=== PATIENT | female | born 1970 | race Caucasian/White ===

== ENCOUNTER 2017-01-05 22:26 | Emergency (ER) | payer OTHER ==
[~2017-01-05] VITALS: Ht 175.3 cm; Wt 61.9 kg
[~2017-01-05 22:26] MED LIST: 12 HOUR DECONG120 M1 PO; BENADRYL25 MG PO; BUSPAR5 MG PO; Bactrim,Septra DS 80 PO; CATAPRES0.2 MG PO; CLEOCIN300 MG PO; CLONAZEPAM0.5 MG PO; CLONIDINE HCL0.1 MG PO; COLACE100 MG PO; EFFEXOR XR150 MG PO; ENDOCET 5-3251 EACH PO; FIORICET 50-301 EACH PO; FOLVITE1 M1 PO; Feosol PO; HYDRALAZINE HCL50 M1 PO; HYDROCHLOROTHIA25 MG PO; IBUPROFEN800 MG PO; KLONOPIN0.125 MG PO; LABETALOL HCL200 MG PO; LIBRIUM25 MG PO; LISINOPRIL20 MG PO; LOPRESSOR25 MG PO; Maalox, Mylanta PO; NOHOMEMEDS; PERCOCET 5/31 TABLET PO; PRENATAL TABLE1 EAC3 PO; PRINIVIL10 MG PO; PriLOSEC OTC PO; RANITIDINE HCL150 MG PO; ROXICET 5-3251 EACH PO; THERAGRAN1 TABLET PO; THIAMINE HCL100 MG PO; THIAMINE,VITAM100 MG PO; TOPROL XL100 MG PO; TYLOX1 CAPSULE PO; ULTRAM50 MG PO; VISTARIL25 MG PO; XANAX2 MG PO; Xanax PO; ZESTRIL,PRINIVI10 M1 PO; ZOFRAN ODT4 MG PO; celeXA PO
[2017-01-05 23:20] LABS: HEMATOCRIT 41.4 % (36.0-46.0); MCH 28.4 PG (29.0-34.0); MCHC 33.1 G/DL (30.0-36.0); MCV 85.7 FL (83-99); MEAN PLAT.VOLUME 9.7 uM^3 (9.5-12.4); PLATELET COUNT 318 K/uL (156-360); RBC DIS.WIDTH-CV 13.5 % (11.8-14.6); RBC DIS.WIDTH-SD 41.8 % (39-53); RED BLOOD COUNT 4.83 M/uL (3.80-5.20); WHITE BLOOD COUNT 10.3 K/uL (4.1-10.2)
[2017-01-05 23:26] LABS: CHLORIDE 105 mEq/L (99-109); POTASSIUM 3.7 mEq/L (3.7-5.4); SODIUM 140 mEq/L (136-147)
[2017-01-05 23:28] LABS: GLUCOSE 75 mg/dL (70-99)
[2017-01-05 23:29] LABS: ANION GAP 10 MEQ/L (2-14)
[2017-01-05 23:31] LABS: SERUM ETHYL ALCOHOL 158 mg/dL
[2017-01-05 23:32] LABS: GFR ESTIMATE (CALCULATED) > 59 mL/min/
[2017-01-05 23:34] LABS: UREA NITROGEN (BUN) 14 mg/dL (9-23)
[2017-01-05 23:35] LABS: SALICYLATE < 5.0 MG/DL (15-30)
[2017-01-06 02:03] VITALS: BP 133/89
== END 2017-01-06 02:29 | disposition home or self-care (01) ==
LOC: EME 22:26
PROVIDERS: Emergency Medicine
DX: F32.9 Major depressive disorder, single episode, unspecified (principal); F41.9 Anxiety disorder, unspecified; F10.129 Alcohol abuse with intoxication, unspecified; Y90.6 Blood alcohol level of 120-199 mg/100 ml; I10 Essential (primary) hypertension; F17.200 Nicotine dependence, unspecified, uncomplicated
CPT/HCPCS: 80048; 85027; 90839; 99281; 99285; G0480

== ENCOUNTER 2017-07-27 16:15 | Emergency (ER) | payer OTHER ==
[~2017-07-27] VITALS: Ht 154.9 cm; Wt 98.3 kg
[2017-07-27] MEDS ORDERED: THIAMINE HCL100 MG PO (17:38)
[2017-07-27 18:08] VITALS: BP 156/117
== END 2017-07-27 18:09 | disposition home or self-care (01) ==
LOC: EME 16:15
DX: F10.10 Alcohol abuse, uncomplicated (principal); F32.9 Major depressive disorder, single episode, unspecified; I10 Essential (primary) hypertension; F43.10 Post-traumatic stress disorder, unspecified; F17.200 Nicotine dependence, unspecified, uncomplicated
CPT/HCPCS: 99281; 99283; J2060

== ENCOUNTER 2017-08-27 23:09 | Inpatient (IN) | payer OTHER ==
[~2017-08-27] VITALS: Ht 160 cm; Wt 69.1 kg
[2017-08-27 23:40] LABS: CREATININE 1.3 mg/dL (0.6-1.3); POTASSIUM 5.7 mEq/L (3.7-5.4)
[2017-08-28] VITALS (7 sets, daily range): BP systolic 89–169; BP diastolic 73–127
[2017-08-28 00:21] LABS: HEMATOCRIT 35.8 % (36.0-46.0); MCH 30.5 PG (29.0-34.0); MCHC 33.8 G/DL (30.0-36.0); MCV 90.2 FL (83-99); NRBC (%) 0.3 /100 WBC (0-0); PLATELET COUNT 149 K/uL (156-360); RBC DIS.WIDTH-CV 14.6 % (11.8-14.6); RBC DIS.WIDTH-SD 48.3 % (39-53); RED BLOOD COUNT 3.97 M/uL (3.80-5.20); WHITE BLOOD COUNT 9.2 K/uL (4.1-10.2)
[2017-08-28 00:23] LABS: PROTHROMBIN TIME 11.7 SEC (10.2-12.9)
[2017-08-28 00:24] LABS: CHLORIDE 96 mEq/L (99-109); POTASSIUM 5.9 mEq/L (3.7-5.4); SODIUM 137 mEq/L (136-147)
[2017-08-28 00:26] LABS: GLUCOSE 88 mg/dL (70-99); PTT 30.6 SEC (25-37)
[2017-08-28 00:27] LABS: ANION GAP 21 MEQ/L (2-14)
[2017-08-28 00:28] LABS: TOTAL BILIRUBIN 0.8 mg/dL (0.0-1.0)
[2017-08-28 00:29] LABS: SERUM ETHYL ALCOHOL 258 mg/dL
[2017-08-28 00:30] LABS: ALKALINE PHOSPHATASE 147 IU/L (3-129); GFR ESTIMATE (CALCULATED) > 59 mL/min/
[2017-08-28 00:32] LABS: UREA NITROGEN (BUN) 11 mg/dL (9-23)
[2017-08-28 00:33] LABS: SALICYLATE < 5.0 MG/DL (15-30)
[2017-08-28 00:34] LABS: LIPASE 112 U/L (1.0-51.0)
[2017-08-28 00:36] LABS: TROP-I INTERPRETATION NEGATIVE; TROPONIN-I < 0.01 ng/mL (0.0-0.30)
[2017-08-28 00:37] LABS: BASE EXCESS -17.5 mEq/L (-3 to +3); BICARBONATE 11.9 mEq/L (22-26); CARBOXY HGB 3.5 % (0-5); COMMENTS - BLOOD GASES A+C+; DEVICE 980; FI02 80 %; MECHANICAL RATE 16 resp/min; METHEMOGLOBIN 1.1 % (0-1.5); MODE AC; PCO2 40 mm Hg (35-45); PEEP 5 CM/H20; PO2 361 mm Hg (80-100); SITE RR; TIDAL VOLUME 400 ML; TOTAL RESP RATE 16 resp/min; pH 7.08 (7.35-7.45)
[2017-08-28 00:40] LABS: QUANTITATIVE HCG < 4.0 MIU/ML
[2017-08-28 00:42] LABS: ADD MIUA? YES; BILIRUBIN NEGATIVE; BLOOD SMALL; COLOR YELLOW ((YELLOW)); GLUCOSE (STRIP) NEGATIVE; KETONES NEGATIVE; LEUKOCYTES MODERATE; NITRITE POSITIVE; PROTEIN (STRIP) NEGATIVE; SPECIFIC GRAVITY 1.005 (1.000-1.030); UROBILINOGEN 0.2 MG/DL (0.2-1.0)
[2017-08-28 00:46] LABS: BACTERIA 2+ /HPF; EPITHELIAL CELLS RARE /HPF; MUCUS TRACE /LPF; RED BLOOD CELLS 0-5 /HPF (0-5); UCUL ADDED? YES
[2017-08-28 00:53] LABS: AMPHETAMINE NEGATIVE (500 ng/mL); BARBITURATES NEGATIVE (200 ng/mL); BENZODIAZEPINES NEGATIVE (150 ng/mL); COCAINE NEGATIVE (150 ng/mL); INTERNAL CONTROLS VALID? YES; METHADONE NEGATIVE (200 ng/mL); METHAMPHETAMINE NEGATIVE (500 ng/mL); OPIATES (MORPHINE) NEGATIVE (100 ng/mL); OXYCODONE NEGATIVE (100 ng/mL); PHENCYCLIDINE NEGATIVE (25 ng/mL); PROPOXYPHENE NEGATIVE (300 ng/mL); THC CANNABINOIDS PRESUMPTIVE POSITIVE (50 ng/mL); TRICYCLIC ANTIDEPRESSANTS NEGATIVE (300 ng/mL)
[2017-08-28 00:54] LABS: ADD MEDTOX COMMENT Y
[2017-08-28 02:40] LABS: COMMENTS - BLOOD GASES C+; DEVICE VENT; SITE LR
[2017-08-28 02:41] LABS: BICARBONATE 10 mEq/L (22-26); CARBOXY HGB 2.4 % (0-5); FI02 40 %; HEMOGLOBIN 16.3 (11.9-15.5); MECHANICAL RATE 16 resp/min; METHEMOGLOBIN 1.6 % (0-1.5); MODE A/C; PCO2 28 mm Hg (35-45); PEEP 5 CM/H20; PO2 86 mm Hg (80-100); TIDAL VOLUME 400 ML; TOTAL RESP RATE 25 resp/min; pH 7.16 (7.35-7.45)
[2017-08-28 02:42] LABS: BASE EXCESS -17.2 mEq/L (-3 to +3)
[2017-08-28 03:04] LABS: MAGNESIUM 2.5 mg/dL (1.3-2.7)
[2017-08-28 03:17] LABS: TROP-I INTERPRETATION NEGATIVE; TROPONIN-I 0.16 ng/mL (0.0-0.30)
[2017-08-28 03:23] LABS: METH RESISTANT S AUREUS PCR NEGATIVE (NEGATIVE)
[2017-08-28 03:24] LABS: BASOPHIL COUNT 0.1 K/uL (0-0.1); EOSINOPHIL (%) 0.1 % (0-5); HEMATOCRIT 48.2 % (36.0-46.0); IMMATURE GRANULOCYTE (%) 0.8 % (0.0-0.7); IMMATURE GRANULOCYTE COUNT 0.1 K/uL; INSTRUMENT ABS NEUTROPHIL CT 13.7 K/uL; LYMPHOCYTE COUNT 1.6 K/uL (1.0-2.8); MCH 30.5 PG (29.0-34.0); MCHC 33.2 G/DL (30.0-36.0); MCV 91.8 FL (83-99); MEAN PLAT.VOLUME 10.4 uM^3 (9.5-12.4); MONOCYTE COUNT 0.3 K/uL (0-0.8); NEUTROPHIL (%) 86.5 % (45-76); NEUTROPHIL COUNT 13.7 K/uL (1.8-6.4); PLATELET COUNT 152 K/uL (156-360); RBC DIS.WIDTH-CV 14.8 % (11.8-14.6); WHITE BLOOD COUNT 15.8 K/uL (4.1-10.2)
[2017-08-28 03:25] LABS: RED BLOOD COUNT 5.25 M/uL (3.80-5.20)
[2017-08-28 03:26] LABS: PROBE CHECK PASS; SPECIMEN PROCESSING CONTROL PASS
[2017-08-28 03:31] LABS: INTER. NORMALIZED RATIO 1.1; PROTHROMBIN TIME 12.2 SEC (10.2-12.9)
[2017-08-28 08:56] LABS: POINT-OF-CARE METER ID UU13113748
[2017-08-28 09:04] LABS: EOSINOPHIL (%) 0 % (0-5); HEMATOCRIT 44.5 % (36.0-46.0); IMMATURE GRANULOCYTE (%) 0.5 % (0.0-0.7); IMMATURE GRANULOCYTE COUNT 0.1 K/uL; INSTRUMENT ABS NEUTROPHIL CT 20.7 K/uL; LYMPHOCYTE COUNT 1.2 K/uL (1.0-2.8); MCHC 32.8 G/DL (30.0-36.0); MCV 91.6 FL (83-99); MEAN PLAT.VOLUME 10.8 uM^3 (9.5-12.4); MONOCYTE (%) 2.3 % (3-12); MONOCYTE COUNT 0.5 K/uL (0-0.8); NEUTROPHIL (%) 91.6 % (45-76); NEUTROPHIL COUNT 20.7 K/uL (1.8-6.4); PLATELET COUNT 142 K/uL (156-360); RBC DIS.WIDTH-CV 14.9 % (11.8-14.6); RBC DIS.WIDTH-SD 50.6 % (39-53); RED BLOOD COUNT 4.86 M/uL (3.80-5.20); WHITE BLOOD COUNT 22.6 K/uL (4.1-10.2)
[2017-08-28 09:15] LABS: INTER. NORMALIZED RATIO 1.4; PROTHROMBIN TIME 16.6 SEC (10.2-12.9)
[2017-08-28 09:18] LABS: PTT 28.1 SEC (25-37)
[2017-08-28 09:34] LABS: BASE EXCESS -14.2 mEq/L (-3 to +3); BICARBONATE 11.6 mEq/L (22-26); METHEMOGLOBIN 1.5 % (0-1.5); PCO2 27 mm Hg (35-45)
[2017-08-28 09:35] LABS: PO2 119 mm Hg (80-100); SITE A LINE; pH 7.24 (7.35-7.45)
[2017-08-28 09:36] LABS: COMMENTS - BLOOD GASES C+; DEVICE VENT; FI02 50 %; MECHANICAL RATE 16 resp/min; MODE AC/VC; PEEP 5 CM/H20; TIDAL VOLUME 400 ML; TOTAL RESP RATE 28 resp/min
[2017-08-28 09:55] LABS: ALKALINE PHOSPHATASE 249 IU/L (3-129); GLUCOSE 220 mg/dL (70-99); MAGNESIUM 1.5 mg/dL (1.3-2.7); TOTAL BILIRUBIN 4.3 mg/dL (0.0-1.0)
[2017-08-28 09:57] LABS: DIRECT BILIRUBIN 3.8 mg/dL (0.0-0.3)
[2017-08-28 10:01] LABS: GFR ESTIMATE (CALCULATED) 52 mL/min/; UREA NITROGEN (BUN) 18 mg/dL (9-23)
[2017-08-28 10:02] LABS: CHLORIDE 109 MEQ/L (99-109); POTASSIUM 3.5 MEQ/L (3.7-5.4); SODIUM 140 MEQ/L (136-147)
[2017-08-28 10:19] LABS: POINT-OF-CARE METER ID UU13113748
[2017-08-28 11:49] LABS: EOSINOPHIL (%) 0 % (0-5); HEMATOCRIT 45.4 % (36.0-46.0); IMMATURE GRANULOCYTE (%) 0.5 % (0.0-0.7); IMMATURE GRANULOCYTE COUNT 0.1 K/uL; INSTRUMENT ABS NEUTROPHIL CT 19.8 K/uL; LYMPHOCYTE COUNT 1.4 K/uL (1.0-2.8); MCH 30.3 PG (29.0-34.0); MCHC 33.3 G/DL (30.0-36.0); MCV 91.2 FL (83-99); MEAN PLAT.VOLUME 11.6 uM^3 (9.5-12.4); MONOCYTE (%) 1.5 % (3-12); MONOCYTE COUNT 0.3 K/uL (0-0.8); NEUTROPHIL (%) 91.3 % (45-76); NEUTROPHIL COUNT 19.8 K/uL (1.8-6.4); PLATELET COUNT 146 K/uL (156-360); RBC DIS.WIDTH-CV 15.1 % (11.8-14.6); RBC DIS.WIDTH-SD 50.5 % (39-53); RED BLOOD COUNT 4.98 M/uL (3.80-5.20); WHITE BLOOD COUNT 21.7 K/uL (4.1-10.2)
[2017-08-28 12:07] LABS: ANION GAP 12 MEQ/L (2-14); CHLORIDE 109 MEQ/L (99-109); GFR ESTIMATE (CALCULATED) 47 mL/min/; GLUCOSE 142 mg/dL (70-99); MAGNESIUM 1.8 mg/dl (1.3-2.7); POTASSIUM 3.8 MEQ/L (3.7-5.4); SAMPLE HEMOLYSIS CHECK 2; SAMPLE ICTERIC CHECK 1; SAMPLE LIPEMIA CHECK 0; SODIUM 138 MEQ/L (136-147); UREA NITROGEN (BUN) 22 mg/dL (9-23)
[2017-08-28 12:11] LABS: TROP-I INTERPRETATION INDETERMINATE; TROPONIN-I 0.45 ng/mL (0.0-0.30)
[2017-08-28 12:13] LABS: INTER. NORMALIZED RATIO 1.4; PROTHROMBIN TIME 16.4 SEC (10.2-12.9)
[2017-08-28 12:16] LABS: PTT 26.9 SEC (25-37)
[2017-08-28 13:10] LABS: POINT-OF-CARE METER ID UU14314082
[2017-08-28 18:28] LABS: ANION GAP 15 MEQ/L (2-14); CHLORIDE 106 MEQ/L (99-109); SAMPLE HEMOLYSIS CHECK 0; SAMPLE ICTERIC CHECK 1; SAMPLE LIPEMIA CHECK 0; SODIUM 142 MEQ/L (136-147)
[2017-08-28 18:31] LABS: EOSINOPHIL (%) 0.1 % (0-5); HEMATOCRIT 36.5 % (36.0-46.0); IMMATURE GRANULOCYTE (%) 0.4 % (0.0-0.7); IMMATURE GRANULOCYTE COUNT 0.1 K/uL; INSTRUMENT ABS NEUTROPHIL CT 17.2 K/uL; LYMPHOCYTE COUNT 0.8 K/uL (1.0-2.8); MCH 30.3 PG (29.0-34.0); MCHC 34.2 G/DL (30.0-36.0); MCV 88.6 FL (83-99); MONOCYTE COUNT 0.2 K/uL (0-0.8); NEUTROPHIL COUNT 17.2 K/uL (1.8-6.4); RBC DIS.WIDTH-CV 14.7 % (11.8-14.6); RBC DIS.WIDTH-SD 47.8 % (39-53); RED BLOOD COUNT 4.12 M/uL (3.80-5.20); WHITE BLOOD COUNT 18.3 K/uL (4.1-10.2)
[2017-08-28 18:34] LABS: GFR ESTIMATE (CALCULATED) 47 mL/min/; UREA NITROGEN (BUN) 24 mg/dL (9-23)
[2017-08-28 18:38] LABS: TROP-I INTERPRETATION NEGATIVE; TROPONIN-I 0.26 ng/mL (0.0-0.30)
[2017-08-28 18:49] LABS: GLUCOSE 266 mg/dL (70-99); MAGNESIUM 1.5 mg/dl (1.3-2.7)
[2017-08-28 18:53] LABS: INTER. NORMALIZED RATIO 1.4; PROTHROMBIN TIME 16.6 SEC (10.2-12.9)
[2017-08-28 18:55] LABS: PTT 26.8 SEC (25-37)
[2017-08-28 19:21] LABS: MEAN PLAT.VOLUME 10.6 uM^3 (9.5-12.4); PLAT.SUFFICIENCY DECREASED
[2017-08-28 19:22] LABS: PLATELET COUNT 92 K/uL (156-360)
[2017-08-28 19:32] LABS: BASE EXCESS -3.6 mEq/L (-3 to +3); CARBOXY HGB 2.1 % (0-5); METHEMOGLOBIN 1.5 % (0-1.5); PO2 108 mm Hg (80-100)
[2017-08-28 19:33] LABS: BICARBONATE 20.6 mEq/L (22-26); COMMENTS - BLOOD GASES C+; DEVICE VENT; FI02 50 %; MECHANICAL RATE 22 resp/min; MODE AC; PCO2 34 mm Hg (35-45); PEEP 5 CM/H20; SITE ALINE; TIDAL VOLUME 400 ML; TOTAL RESP RATE 22 resp/min; pH 7.39 (7.35-7.45)
[2017-08-29 00:29] LABS: EOSINOPHIL (%) 0.1 % (0-5); HEMATOCRIT 35.4 % (36.0-46.0); IMMATURE GRANULOCYTE (%) 0.5 % (0.0-0.7); IMMATURE GRANULOCYTE COUNT 0.1 K/uL; INSTRUMENT ABS NEUTROPHIL CT 18.5 K/uL; LYMPHOCYTE COUNT 0.8 K/uL (1.0-2.8); MCH 30.4 PG (29.0-34.0); MCHC 34.7 G/DL (30.0-36.0); MCV 87.6 FL (83-99); MEAN PLAT.VOLUME 11.7 uM^3 (9.5-12.4); MONOCYTE (%) 1.6 % (3-12); MONOCYTE COUNT 0.3 K/uL (0-0.8); NEUTROPHIL (%) 93.7 % (45-76); NEUTROPHIL COUNT 18.5 K/uL (1.8-6.4); PLATELET COUNT 91 K/uL (156-360); RBC DIS.WIDTH-CV 14.7 % (11.8-14.6); RBC DIS.WIDTH-SD 47.2 % (39-53); RED BLOOD COUNT 4.04 M/uL (3.80-5.20); WHITE BLOOD COUNT 19.7 K/uL (4.1-10.2)
[2017-08-29 00:34] LABS: INTER. NORMALIZED RATIO 1.4; PROTHROMBIN TIME 15.7 SEC (10.2-12.9)
[2017-08-29 00:37] LABS: POTASSIUM 3.1 mEq/L (3.7-5.4); PTT 27.2 SEC (25-37); SODIUM 143 mEq/L (136-147)
[2017-08-29 00:40] LABS: GLUCOSE 185 mg/dL (70-99)
[2017-08-29 00:41] LABS: ANION GAP 15 MEQ/L (2-14)
[2017-08-29 00:43] LABS: GFR ESTIMATE (CALCULATED) 52 mL/min/
[2017-08-29 00:44] LABS: UREA NITROGEN (BUN) 24 mg/dL (9-23)
[2017-08-29 00:49] LABS: TROP-I INTERPRETATION NEGATIVE; TROPONIN-I 0.15 ng/mL (0.0-0.30)
[2017-08-29 01:06] LABS: CHLORIDE 111 mEq/L (99-109); MAGNESIUM 1.2 mg/dL (1.3-2.7)
[2017-08-29 05:54] LABS: BASE EXCESS -5.7 mEq/L (-3 to +3); CARBOXY HGB 1.9 % (0-5); METHEMOGLOBIN 1.5 % (0-1.5)
[2017-08-29 05:55] LABS: COMMENTS - BLOOD GASES C+; DEVICE VENT; FI02 50 %; MECHANICAL RATE 22 resp/min; MODE AC; PCO2 29 mm Hg (35-45); PEEP 5 CM/H20; PO2 71 mm Hg (80-100); SITE ALINE; TIDAL VOLUME 400 ML; TOTAL RESP RATE 23 resp/min
[2017-08-29 06:52] LABS: INTER. NORMALIZED RATIO 1.4; PROTHROMBIN TIME 15.5 SEC (10.2-12.9)
[2017-08-29 06:54] LABS: EOSINOPHIL (%) 0 % (0-5); HEMATOCRIT 34.1 % (36.0-46.0); IMMATURE GRANULOCYTE (%) 0.4 % (0.0-0.7); IMMATURE GRANULOCYTE COUNT 0.1 K/uL; INSTRUMENT ABS NEUTROPHIL CT 19.5 K/uL; LYMPHOCYTE COUNT 0.8 K/uL (1.0-2.8); MCH 31.5 PG (29.0-34.0); MCHC 36.1 G/DL (30.0-36.0); MCV 87.4 FL (83-99); MEAN PLAT.VOLUME 11.5 uM^3 (9.5-12.4); MONOCYTE (%) 1.5 % (3-12); MONOCYTE COUNT 0.3 K/uL (0-0.8); NEUTROPHIL (%) 94.1 % (45-76); NEUTROPHIL COUNT 19.5 K/uL (1.8-6.4); PLATELET COUNT 96 K/uL (156-360); RBC DIS.WIDTH-CV 14.8 % (11.8-14.6); RBC DIS.WIDTH-SD 47.3 % (39-53); WHITE BLOOD COUNT 20.7 K/uL (4.1-10.2)
[2017-08-29 07:00] LABS: PTT 30.3 SEC (25-37)
[2017-08-29 07:04] LABS: ANION GAP 15 MEQ/L (2-14); CHLORIDE 110 MEQ/L (99-109); GFR ESTIMATE (CALCULATED) 43 mL/min/; GLUCOSE 168 mg/dL (70-99); MAGNESIUM 1.5 mg/dl (1.3-2.7); POTASSIUM 2.8 MEQ/L (3.7-5.4); SAMPLE HEMOLYSIS CHECK 0; SAMPLE ICTERIC CHECK 1; SAMPLE LIPEMIA CHECK 0; SODIUM 144 MEQ/L (136-147); UREA NITROGEN (BUN) 28 mg/dL (9-23)
[2017-08-29 07:06] LABS: TROP-I INTERPRETATION NEGATIVE; TROPONIN-I 0.13 ng/mL (0.0-0.30)
[2017-08-29 08:00] VITALS: BP 102/80
[2017-08-29 10:07] LABS: POINT-OF-CARE METER ID UU13113748
[2017-08-29 11:20] LABS: ALKALINE PHOSPHATASE 173 IU/L (3-129); DIRECT BILIRUBIN 4.4 mg/dL (0.0-0.3); TOTAL BILIRUBIN 5.8 MG/DL (0.0-1.0)
[2017-08-29 12:05] LABS: BASE EXCESS -8.3 mEq/L (-3 to +3); BICARBONATE 15.1 mEq/L (22-26); CARBOXY HGB 1.7 % (0-5); COMMENTS - BLOOD GASES A+C+; DEVICE VENT; FI02 50 %; METHEMOGLOBIN 1.5 % (0-1.5); PCO2 25 mm Hg (35-45); PO2 240 mm Hg (80-100); SITE A LINE; pH 7.39 (7.35-7.45)
[2017-08-29 12:06] LABS: MECHANICAL RATE 22 resp/min; MODE AC/VC; PEEP 5 CM/H20; TIDAL VOLUME 400 ML; TOTAL RESP RATE 32 resp/min
[2017-08-29 13:00] VITALS: BP 168/114
[2017-08-29 13:01] LABS: INTER. NORMALIZED RATIO 1.3; PROTHROMBIN TIME 15.2 SEC (10.2-12.9)
[2017-08-29 13:04] LABS: HEMATOCRIT 35.1 % (36.0-46.0); MCH 30.3 PG (29.0-34.0); MCHC 34.5 G/DL (30.0-36.0); PLATELET COUNT 104 K/uL (156-360); PTT 35.6 SEC (25-37); RBC DIS.WIDTH-CV 14.9 % (11.8-14.6); RBC DIS.WIDTH-SD 48.3 % (39-53); RED BLOOD COUNT 3.99 M/uL (3.80-5.20); WHITE BLOOD COUNT 22.8 K/uL (4.1-10.2)
[2017-08-29 13:13] LABS: ANION GAP 16 MEQ/L (2-14); CHLORIDE 112 MEQ/L (99-109); GFR ESTIMATE (CALCULATED) 40 mL/min/; GLUCOSE 148 mg/dL (70-99); MAGNESIUM 2.4 mg/dl (1.3-2.7); POTASSIUM 4.1 MEQ/L (3.7-5.4); SAMPLE HEMOLYSIS CHECK 1; SAMPLE ICTERIC CHECK 1; SAMPLE LIPEMIA CHECK 0; SODIUM 144 MEQ/L (136-147); UREA NITROGEN (BUN) 29 mg/dL (9-23)
[2017-08-29 13:14] LABS: TROP-I INTERPRETATION NEGATIVE; TROPONIN-I 0.11 ng/mL (0.0-0.30)
[2017-08-29 14:00] LABS: ABS NEUTROPHIL COUNT 21.5; ANISOCYTOSIS 1+; EOSINOPHIL ABS CT 0; INSTRUMENT ABS NEUTROPHIL CT 21.4 K/uL; LYMPHOCYTES 4.5 % (15.0-45.0); PLAT.SUFFICIENCY DECREASED; SEG.NEUTROPHILS 74.5 % (46.0-76.0)
[2017-08-29 15:00] VITALS: BP 168/114
[2017-08-29 17:52] LABS: EOSINOPHIL (%) 0 % (0-5); HEMATOCRIT 34.5 % (36.0-46.0); IMMATURE GRANULOCYTE (%) 0.5 % (0.0-0.7); IMMATURE GRANULOCYTE COUNT 0.1 K/uL; INSTRUMENT ABS NEUTROPHIL CT 21.5 K/uL; LYMPHOCYTE COUNT 0.8 K/uL (1.0-2.8); MCH 30.6 PG (29.0-34.0); MCHC 34.8 G/DL (30.0-36.0); MEAN PLAT.VOLUME 13.6 uM^3 (9.5-12.4); MONOCYTE (%) 1.7 % (3-12); MONOCYTE COUNT 0.4 K/uL (0-0.8); NEUTROPHIL (%) 94.3 % (45-76); NEUTROPHIL COUNT 21.5 K/uL (1.8-6.4); NRBC (%) 0.1 /100 WBC (0-0); PLATELET COUNT 116 K/uL (156-360); RBC DIS.WIDTH-CV 15.7 % (11.8-14.6); RBC DIS.WIDTH-SD 50.2 % (39-53); RED BLOOD COUNT 3.92 M/uL (3.80-5.20); WHITE BLOOD COUNT 22.8 K/uL (4.1-10.2)
[2017-08-29 18:15] LABS: INTER. NORMALIZED RATIO 1.3; PROTHROMBIN TIME 14.8 SEC (10.2-12.9)
[2017-08-29 18:16] LABS: TROP-I INTERPRETATION NEGATIVE; TROPONIN-I 0.11 ng/mL (0.0-0.30)
[2017-08-29 18:18] LABS: PTT 43.6 SEC (25-37)
[2017-08-29 20:00] VITALS: BP 121/89
[2017-08-29 20:08] LABS: ALKALINE PHOSPHATASE 167 IU/L (3-129); ANION GAP 13 MEQ/L (2-14); CHLORIDE 115 MEQ/L (99-109); DIRECT BILIRUBIN 1.9 mg/dL (0.0-0.3); GFR ESTIMATE (CALCULATED) 37 mL/min/; GLUCOSE 149 mg/dL (70-99); MAGNESIUM 2.2 mg/dl (1.3-2.7); POTASSIUM 4.4 MEQ/L (3.7-5.4); SAMPLE HEMOLYSIS CHECK 1; SAMPLE ICTERIC CHECK 0; SAMPLE LIPEMIA CHECK 0; SODIUM 143 MEQ/L (136-147); UREA NITROGEN (BUN) 31 mg/dL (9-23)
[2017-08-29 20:09] LABS: TOTAL BILIRUBIN 3.4 MG/DL (0.0-1.0)
[2017-08-30] VITALS: BP 107/87
[2017-08-30 00:46] LABS: HEMATOCRIT 30.6 % (36.0-46.0); INTER. NORMALIZED RATIO 1.4; MCH 30.5 PG (29.0-34.0); MCHC 34.6 G/DL (30.0-36.0); MCV 87.9 FL (83-99); RBC DIS.WIDTH-CV 15.8 % (11.8-14.6); RBC DIS.WIDTH-SD 50.8 % (39-53); RED BLOOD COUNT 3.48 M/uL (3.80-5.20); WHITE BLOOD COUNT 17.2 K/uL (4.1-10.2)
[2017-08-30 00:48] LABS: PTT 53.1 SEC (25-37)
[2017-08-30 00:50] LABS: CHLORIDE 119 mEq/L (99-109); POTASSIUM 3.6 mEq/L (3.7-5.4); SODIUM 144 mEq/L (136-147)
[2017-08-30 00:52] LABS: GLUCOSE 148 mg/dL (70-99); MAGNESIUM 1.7 mg/dL (1.3-2.7)
[2017-08-30 00:53] LABS: ANION GAP 14 MEQ/L (2-14)
[2017-08-30 00:56] LABS: GFR ESTIMATE (CALCULATED) 32 mL/min/
[2017-08-30 00:57] LABS: UREA NITROGEN (BUN) 34 mg/dL (9-23)
[2017-08-30 00:58] LABS: TROP-I INTERPRETATION NEGATIVE; TROPONIN-I 0.12 ng/mL (0.0-0.30)
[2017-08-30 01:14] LABS: EOSINOPHIL (%) 0 % (0-5); IMMATURE GRANULOCYTE COUNT 0.2 K/uL; INSTRUMENT ABS NEUTROPHIL CT 15.6 K/uL; LYMPHOCYTE COUNT 0.8 K/uL (1.0-2.8); MONOCYTE (%) 3.3 % (3-12); MONOCYTE COUNT 0.6 K/uL (0-0.8); NEUTROPHIL (%) 90.8 % (45-76); NEUTROPHIL COUNT 15.6 K/uL (1.8-6.4); PLAT.SUFFICIENCY VERY DECREASED; PLATELET COUNT 60 K/uL (156-360)
[2017-08-30 05:31] LABS: TROP-I INTERPRETATION NEGATIVE; TROPONIN-I 0.12 ng/mL (0.0-0.30)
[2017-08-30 05:37] LABS: INTER. NORMALIZED RATIO 1.3; PROTHROMBIN TIME 14.9 SEC (10.2-12.9)
[2017-08-30 05:40] LABS: PTT 58.4 SEC (25-37)
[2017-08-30 05:47] LABS: EOSINOPHIL (%) 0.1 % (0-5); HEMATOCRIT 29.8 % (36.0-46.0); IMMATURE GRANULOCYTE (%) 1.6 % (0.0-0.7); IMMATURE GRANULOCYTE COUNT 0.3 K/uL; INSTRUMENT ABS NEUTROPHIL CT 13.6 K/uL; LYMPHOCYTE COUNT 1.2 K/uL (1.0-2.8); MCH 31.2 PG (29.0-34.0); MCHC 34.9 G/DL (30.0-36.0); MCV 89.5 FL (83-99); MONOCYTE (%) 3.5 % (3-12); MONOCYTE COUNT 0.5 K/uL (0-0.8); NEUTROPHIL (%) 87.2 % (45-76); NEUTROPHIL COUNT 13.6 K/uL (1.8-6.4); NRBC (%) 0.1 /100 WBC (0-0); RBC DIS.WIDTH-CV 16.3 % (11.8-14.6); RBC DIS.WIDTH-SD 53.2 % (39-53); RED BLOOD COUNT 3.33 M/uL (3.80-5.20); WHITE BLOOD COUNT 15.5 K/uL (4.1-10.2)
[2017-08-30 06:00] VITALS: BP 133/105
[2017-08-30 06:00] LABS: PLAT.SUFFICIENCY VERY DECREASED
[2017-08-30 06:15] LABS: IMM.PLATELET FRACTION 9.3 (1-7); PLATELET COUNT 49 K/uL (156-360)
[2017-08-30 06:29] LABS: ANION GAP 14 MEQ/L (2-14); CHLORIDE 118 MEQ/L (99-109); GFR ESTIMATE (CALCULATED) 29 mL/min/; GLUCOSE 151 mg/dL (70-99); MAGNESIUM 2.1 mg/dl (1.3-2.7); POTASSIUM 3.3 MEQ/L (3.7-5.4); SAMPLE HEMOLYSIS CHECK 0; SAMPLE ICTERIC CHECK 0; SAMPLE LIPEMIA CHECK 0; SODIUM 144 MEQ/L (136-147); UREA NITROGEN (BUN) 36 mg/dL (9-23)
[2017-08-30 08:00] VITALS: BP 149/103
[2017-08-30 12:00] VITALS: BP 149/103
[2017-08-30 12:15] LABS: INTER. NORMALIZED RATIO 1.2; PROTHROMBIN TIME 13.4 SEC (10.2-12.9)
[2017-08-30 12:18] LABS: EOSINOPHIL (%) 0.1 % (0-5); HEMATOCRIT 28.4 % (36.0-46.0); IMMATURE GRANULOCYTE (%) 1.5 % (0.0-0.7); IMMATURE GRANULOCYTE COUNT 0.2 K/uL; INSTRUMENT ABS NEUTROPHIL CT 12.8 K/uL; LYMPHOCYTE COUNT 1.7 K/uL (1.0-2.8); MCH 31.6 PG (29.0-34.0); MCHC 34.9 G/DL (30.0-36.0); MCV 90.7 FL (83-99); MONOCYTE (%) 3.7 % (3-12); MONOCYTE COUNT 0.6 K/uL (0-0.8); NEUTROPHIL (%) 83.5 % (45-76); NEUTROPHIL COUNT 12.8 K/uL (1.8-6.4); PTT 46.3 SEC (25-37); RBC DIS.WIDTH-CV 16.4 % (11.8-14.6); RED BLOOD COUNT 3.13 M/uL (3.80-5.20); WHITE BLOOD COUNT 15.3 K/uL (4.1-10.2)
[2017-08-30 12:21] LABS: TROP-I INTERPRETATION NEGATIVE; TROPONIN-I 0.07 ng/mL (0.0-0.30)
[2017-08-30 12:22] LABS: UR CREATININE CONCENTRATION 83.7 MG/DL
[2017-08-30 12:39] LABS: IMM.PLATELET FRACTION 7.1 (1-7); PLAT.SUFFICIENCY DECREASED; PLATELET COUNT 43 K/uL (156-360)
[2017-08-30 12:46] LABS: ANION GAP 14 MEQ/L (2-14); CHLORIDE 122 MEQ/L (99-109); GFR ESTIMATE (CALCULATED) 37 mL/min/; GLUCOSE 146 mg/dL (70-99); MAGNESIUM 2.1 mg/dl (1.3-2.7); POTASSIUM 3.2 MEQ/L (3.7-5.4); SAMPLE HEMOLYSIS CHECK 1; SAMPLE ICTERIC CHECK 0; SAMPLE LIPEMIA CHECK 0; SODIUM 149 MEQ/L (136-147); UREA NITROGEN (BUN) 34 mg/dL (9-23)
[2017-08-30 16:00] VITALS: BP 164/125
[2017-08-30 17:58] LABS: HEMATOCRIT 27.7 % (36.0-46.0); MCH 31.2 PG (29.0-34.0); MCV 89.1 FL (83-99); NRBC (%) 0.1 /100 WBC (0-0); RBC DIS.WIDTH-CV 16.2 % (11.8-14.6); RBC DIS.WIDTH-SD 52.8 % (39-53); RED BLOOD COUNT 3.11 M/uL (3.80-5.20); WHITE BLOOD COUNT 16.7 K/uL (4.1-10.2)
[2017-08-30 18:05] LABS: INTER. NORMALIZED RATIO 1.1; PROTHROMBIN TIME 12.1 SEC (10.2-12.9)
[2017-08-30 18:07] LABS: CHLORIDE 126 mEq/L (99-109); POTASSIUM 3.5 mEq/L (3.7-5.4); PTT 36.1 SEC (25-37); SODIUM 149 mEq/L (136-147)
[2017-08-30 18:09] LABS: GLUCOSE 124 mg/dL (70-99)
[2017-08-30 18:10] LABS: ANION GAP 10 MEQ/L (2-14)
[2017-08-30 18:13] LABS: GFR ESTIMATE (CALCULATED) 40 mL/min/; UREA NITROGEN (BUN) 33 mg/dL (9-23)
[2017-08-30 18:19] LABS: TROP-I INTERPRETATION NEGATIVE; TROPONIN-I 0.05 ng/mL (0.0-0.30)
[2017-08-30 19:51] LABS: ABS NEUTROPHIL COUNT 14.9; ANISOCYTOSIS 1+; ATYPICAL LYMPHOCYTE 3.5 %; BAND NEUTROPHILS 28.3 % (0-8.0); BASOPHILS 0.9 %; EOSINOPHIL ABS CT 0; HELMET CELLS 1+; HYPOCHROMASIA 2+; IMM.PLATELET FRACTION 9.5 (1-7); INSTRUMENT ABS NEUTROPHIL CT 14.4 K/uL; LYMPHOCYTES 6.2 % (15.0-45.0); MACROCYTES 2+; MEAN PLAT.VOLUME 12.8 uM^3 (9.5-12.4); PLAT.SUFFICIENCY VERY DECREASED; PLATELET COUNT 47 K/uL (156-360); SEG.NEUTROPHILS 61.1 % (46.0-76.0); SPHEROCYTES 1+; TARGET CELLS 1+
[2017-08-31 01:08] LABS: CHLORIDE 126 mEq/L (99-109); POTASSIUM 3.1 mEq/L (3.7-5.4); SODIUM 151 mEq/L (136-147)
[2017-08-31 01:09] LABS: MAGNESIUM 1.8 mg/dL (1.3-2.7)
[2017-08-31 01:10] LABS: GLUCOSE 118 mg/dL (70-99)
[2017-08-31 01:12] LABS: ANION GAP 10 MEQ/L (2-14); EOSINOPHIL (%) 0 % (0-5); HEMATOCRIT 23.5 % (36.0-46.0); IMMATURE GRANULOCYTE (%) 1.1 % (0.0-0.7); IMMATURE GRANULOCYTE COUNT 0.2 K/uL; INSTRUMENT ABS NEUTROPHIL CT 12.6 K/uL; LYMPHOCYTE COUNT 1.7 K/uL (1.0-2.8); MCH 31.2 PG (29.0-34.0); MCHC 34.5 G/DL (30.0-36.0); MCV 90.4 FL (83-99); MONOCYTE (%) 3.8 % (3-12); MONOCYTE COUNT 0.6 K/uL (0-0.8); NEUTROPHIL (%) 83.5 % (45-76); NEUTROPHIL COUNT 12.6 K/uL (1.8-6.4); RBC DIS.WIDTH-CV 16.5 % (11.8-14.6); RBC DIS.WIDTH-SD 53.4 % (39-53); WHITE BLOOD COUNT 15.1 K/uL (4.1-10.2)
[2017-08-31 01:14] LABS: GFR ESTIMATE (CALCULATED) 52 mL/min/
[2017-08-31 01:15] LABS: UREA NITROGEN (BUN) 33 mg/dL (9-23)
[2017-08-31 01:20] LABS: TROP-I INTERPRETATION NEGATIVE; TROPONIN-I 0.04 ng/mL (0.0-0.30)
[2017-08-31 01:40] LABS: PROTHROMBIN TIME 11.4 SEC (10.2-12.9)
[2017-08-31 01:42] LABS: PTT 32.6 SEC (25-37)
[2017-08-31 02:00] VITALS: BP 146/106
[2017-08-31 02:01] LABS: IMM.PLATELET FRACTION 9.6 (1-7); PLAT.SUFFICIENCY VERY DECREASED; PLATELET COUNT 38 K/uL (156-360)
[2017-08-31 05:41] LABS: PROTHROMBIN TIME 11.2 SEC (10.2-12.9)
[2017-08-31 05:44] LABS: PTT 28.9 SEC (25-37)
[2017-08-31 05:57] LABS: TROP-I INTERPRETATION NEGATIVE; TROPONIN-I 0.03 ng/mL (0.0-0.30)
[2017-08-31 05:58] LABS: CHLORIDE 128 mEq/L (99-109); SODIUM 151 mEq/L (136-147)
[2017-08-31 05:59] LABS: MAGNESIUM 1.9 mg/dL (1.3-2.7)
[2017-08-31 06:00] LABS: GLUCOSE 100 mg/dL (70-99); HEMATOCRIT 24.5 % (36.0-46.0); MCHC 33.9 G/DL (30.0-36.0); MCV 91.4 FL (83-99); RBC DIS.WIDTH-CV 16.9 % (11.8-14.6); RBC DIS.WIDTH-SD 56.7 % (39-53); RED BLOOD COUNT 2.68 M/uL (3.80-5.20); WHITE BLOOD COUNT 16.3 K/uL (4.1-10.2)
[2017-08-31 06:01] LABS: ANION GAP 10 MEQ/L (2-14)
[2017-08-31 06:04] LABS: GFR ESTIMATE (CALCULATED) 57 mL/min/
[2017-08-31 06:05] LABS: UREA NITROGEN (BUN) 31 mg/dL (9-23)
[2017-08-31 06:17] LABS: EOSINOPHIL (%) 0.1 % (0-5); IMMATURE GRANULOCYTE (%) 0.6 % (0.0-0.7); IMMATURE GRANULOCYTE COUNT 0.1 K/uL; INSTRUMENT ABS NEUTROPHIL CT 13.6 K/uL; LYMPHOCYTE COUNT 1.9 K/uL (1.0-2.8); MONOCYTE (%) 4.4 % (3-12); MONOCYTE COUNT 0.7 K/uL (0-0.8); NEUTROPHIL (%) 83.3 % (45-76); NEUTROPHIL COUNT 13.6 K/uL (1.8-6.4); PLAT.SUFFICIENCY VERY DECREASED; PLATELET COUNT 39 K/uL (156-360)
[2017-08-31 06:18] LABS: POTASSIUM 4.2 mEq/L (3.7-5.4)
[2017-08-31 06:34] LABS: BASE EXCESS -8.4 mEq/L (-3 to +3); BICARBONATE 15.2 mEq/L (22-26); CARBOXY HGB 2.1 % (0-5); COMMENTS - BLOOD GASES C+; DEVICE VENT; FI02 30 %; MECHANICAL RATE 22 resp/min; METHEMOGLOBIN 1.6 % (0-1.5); MODE ACVC; PCO2 24 mm Hg (35-45); PEEP 5 CM/H20; PO2 94 mm Hg (80-100); SITE A-LINE; TIDAL VOLUME 450 ML; TOTAL RESP RATE 22 resp/min; pH 7.41 (7.35-7.45)
[2017-08-31 08:30] VITALS: BP 136/93
[2017-08-31 13:02] LABS: INTER. NORMALIZED RATIO 0.9; PROTHROMBIN TIME 10.8 SEC (10.2-12.9)
[2017-08-31 13:04] LABS: PTT 28.6 SEC (25-37)
[2017-08-31 13:18] LABS: ANION GAP 8 MEQ/L (2-14); CHLORIDE 129 MEQ/L (99-109); GFR ESTIMATE (CALCULATED) 57 mL/min/; GLUCOSE 99 mg/dL (70-99); MAGNESIUM 2.1 mg/dl (1.3-2.7); POTASSIUM 3.9 MEQ/L (3.7-5.4); SAMPLE HEMOLYSIS CHECK 1; SAMPLE ICTERIC CHECK 0; SAMPLE LIPEMIA CHECK 0; SODIUM 153 MEQ/L (136-147); UREA NITROGEN (BUN) 29 mg/dL (9-23)
[2017-08-31 13:21] LABS: TROP-I INTERPRETATION NEGATIVE; TROPONIN-I 0.01 ng/mL (0.0-0.30)
[2017-08-31 13:25] LABS: EOSINOPHIL (%) 0.1 % (0-5); HEMATOCRIT 22.6 % (36.0-46.0); IMM.PLATELET FRACTION 8.3 (1-7); IMMATURE GRANULOCYTE (%) 0.5 % (0.0-0.7); IMMATURE GRANULOCYTE COUNT 0.1 K/uL; INSTRUMENT ABS NEUTROPHIL CT 12.6 K/uL; LYMPHOCYTE COUNT 1.8 K/uL (1.0-2.8); MCHC 33.6 G/DL (30.0-36.0); MCV 92.2 FL (83-99); MONOCYTE (%) 5.9 % (3-12); MONOCYTE COUNT 0.9 K/uL (0-0.8); NEUTROPHIL (%) 81.6 % (45-76); NEUTROPHIL COUNT 12.6 K/uL (1.8-6.4); PLAT.SUFFICIENCY DECREASED; RBC DIS.WIDTH-CV 17.2 % (11.8-14.6); RBC DIS.WIDTH-SD 57.1 % (39-53); RED BLOOD COUNT 2.45 M/uL (3.80-5.20); WHITE BLOOD COUNT 15.4 K/uL (4.1-10.2)
[2017-08-31 13:26] LABS: PLATELET COUNT 63 K/uL (156-360)
[2017-08-31 18:09] LABS: BASE EXCESS -6.6 mEq/L (-3 to +3); BICARBONATE 16.4 mEq/L (22-26); CARBOXY HGB 2.5 % (0-5); PCO2 23 mm Hg (35-45); pH 7.46 (7.35-7.45)
[2017-08-31 18:14] LABS: PO2 73 mm Hg (80-100)
[2017-08-31 18:15] LABS: COMMENTS - BLOOD GASES C+; DEVICE VENT; FI02 30 %; INSPIRATION TIME 0.75 seconds; MECHANICAL RATE 22 resp/min; MODE AC VC+; PEEP 5 CM/H20; SITE RR ALINE; TIDAL VOLUME 450 ML; TOTAL RESP RATE 29 resp/min
[2017-08-31 18:43] LABS: INTER. NORMALIZED RATIO 0.9; PROTHROMBIN TIME 10.5 SEC (10.2-12.9)
[2017-08-31 18:46] LABS: PTT 28.8 SEC (25-37)
[2017-08-31 18:55] LABS: TROP-I INTERPRETATION NEGATIVE; TROPONIN-I 0.01 ng/mL (0.0-0.30)
[2017-08-31 19:03] LABS: ANISOCYTOSIS 1+; EOSINOPHIL (%) 0.1 % (0-5); HYPOCHROMASIA 2+; IMM.PLATELET FRACTION 5.8 (1-7); IMMATURE GRANULOCYTE (%) 0.4 % (0.0-0.7); IMMATURE GRANULOCYTE COUNT 0.1 K/uL; INSTRUMENT ABS NEUTROPHIL CT 11.5 K/uL; LYMPHOCYTE COUNT 1.6 K/uL (1.0-2.8); MACROCYTES 1+; MCH 31.6 PG (29.0-34.0); MCHC 33.2 G/DL (30.0-36.0); MCV 95.2 FL (83-99); MEAN PLAT.VOLUME 13.3 uM^3 (9.5-12.4); MONOCYTE (%) 7.1 % (3-12); NEUTROPHIL (%) 81.4 % (45-76); NEUTROPHIL COUNT 11.5 K/uL (1.8-6.4); PLAT.SUFFICIENCY VERY DECREASED; PLATELET COUNT 38 K/uL (156-360); RBC DIS.WIDTH-CV 17.4 % (11.8-14.6); RBC DIS.WIDTH-SD 60.5 % (39-53); RED BLOOD COUNT 2.31 M/uL (3.80-5.20); TARGET CELLS 1+; WHITE BLOOD COUNT 14.2 K/uL (4.1-10.2)
[2017-08-31 19:08] LABS: ANION GAP 10 MEQ/L (2-14); CHLORIDE 124 MEQ/L (99-109); GAMMA-GT 337 IU/L (4-73); GFR ESTIMATE (CALCULATED) > 59 mL/min/; GLUCOSE 112 mg/dL (70-99); POTASSIUM 3.2 MEQ/L (3.7-5.4); SAMPLE HEMOLYSIS CHECK 0; SAMPLE ICTERIC CHECK 0; SAMPLE LIPEMIA CHECK 0; SODIUM 148 MEQ/L (136-147); UREA NITROGEN (BUN) 27 mg/dL (9-23)
[2017-08-31 19:08] LABS: ANION GAP 7 MEQ/L (2-14); CHLORIDE 127 MEQ/L (99-109); GFR ESTIMATE (CALCULATED) > 59 mL/min/; GLUCOSE 114 mg/dL (70-99); POTASSIUM 3.3 MEQ/L (3.7-5.4); SAMPLE HEMOLYSIS CHECK 0; SAMPLE ICTERIC CHECK 0; SAMPLE LIPEMIA CHECK 0; SODIUM 150 MEQ/L (136-147); UREA NITROGEN (BUN) 28 mg/dL (9-23)
[2017-08-31 19:12] LABS: ALKALINE PHOSPHATASE 108 IU/L (3-129); TOTAL BILIRUBIN 1.2 MG/DL (0.0-1.0)
[2017-08-31 19:12] LABS: ALKALINE PHOSPHATASE 100 IU/L (3-129); DIRECT BILIRUBIN 0.5 mg/dL (0.0-0.3); TOTAL BILIRUBIN 1.1 MG/DL (0.0-1.0)
[2017-08-31 19:22] LABS: ADD MIUA? YES; BILIRUBIN NEGATIVE; BLOOD MODERATE; COLOR YELLOW ((YELLOW)); GLUCOSE (STRIP) NEGATIVE; KETONES 5; LEUKOCYTES NEGATIVE; NITRITE NEGATIVE; PROTEIN (STRIP) 30; SPECIFIC GRAVITY 1.014 (1.000-1.030); UROBILINOGEN 0.2 MG/DL (0.2-1.0)
[2017-08-31 19:58] LABS: BACTERIA RARE /HPF; BUDDING YEAST 2+; EPITHELIAL CELLS RARE /HPF; MUCUS TRACE /LPF; WHITE BLOOD CELLS 0-5 /HPF (0-5)
[2017-08-31 23:48] LABS: BASE EXCESS -8.1 mEq/L (-3 to +3); BICARBONATE 15.6 mEq/L (22-26); CARBOXY HGB 1.7 % (0-5); COMMENTS - BLOOD GASES C+; DEVICE VENT; FI02 30 %; MECHANICAL RATE 22 resp/min; METHEMOGLOBIN 2.1 % (0-1.5); MODE ACVC+; PCO2 24 mm Hg (35-45); PO2 103 mm Hg (80-100); SITE A-LINE; pH 7.42 (7.35-7.45)
[2017-08-31 23:49] LABS: PEEP 5 CM/H20; TIDAL VOLUME 450 ML
[2017-09-01 00:39] LABS: INTER. NORMALIZED RATIO 0.9; PROTHROMBIN TIME 10.5 SEC (10.2-12.9)
[2017-09-01 00:42] LABS: PTT 27.5 SEC (25-37)
[2017-09-01 00:45] LABS: HEMATOCRIT 19.9 % (36.0-46.0); MCH 31.4 PG (29.0-34.0); MCHC 33.2 G/DL (30.0-36.0); MCV 94.8 FL (83-99); RBC DIS.WIDTH-CV 17.4 % (11.8-14.6); RBC DIS.WIDTH-SD 59.9 % (39-53); WHITE BLOOD COUNT 13.4 K/uL (4.1-10.2)
[2017-09-01 00:55] LABS: CHLORIDE 130 mEq/L (99-109); POTASSIUM 3.8 mEq/L (3.7-5.4); SODIUM 149 mEq/L (136-147)
[2017-09-01 00:56] LABS: MAGNESIUM 1.6 mg/dL (1.3-2.7)
[2017-09-01 00:57] LABS: CHLORIDE 131 mEq/L (99-109); GLUCOSE 118 mg/dL (70-99); POTASSIUM 3.8 mEq/L (3.7-5.4); SODIUM 148 mEq/L (136-147)
[2017-09-01 00:59] LABS: ANION GAP 3 MEQ/L (2-14); GLUCOSE 116 mg/dL (70-99)
[2017-09-01 01:01] LABS: ANION GAP 2 MEQ/L (2-14); GFR ESTIMATE (CALCULATED) > 59 mL/min/
[2017-09-01 01:02] LABS: UREA NITROGEN (BUN) 24 mg/dL (9-23)
[2017-09-01 01:03] LABS: GFR ESTIMATE (CALCULATED) > 59 mL/min/
[2017-09-01 01:04] LABS: ALKALINE PHOSPHATASE 105 IU/L (3-129); ALKALINE PHOSPHATASE 106 IU/L (3-129); ALKALINE PHOSPHATASE 109 IU/L (3-129); DIRECT BILIRUBIN 0.6 mg/dL (0.0-0.3); TOTAL BILIRUBIN 0.9 mg/dL (0.0-1.0); UREA NITROGEN (BUN) 24 mg/dL (9-23)
[2017-09-01 01:05] LABS: DIRECT BILIRUBIN 0.6 mg/dL (0.0-0.3); TROP-I INTERPRETATION NEGATIVE; TROPONIN-I 0.01 ng/mL (0.0-0.30)
[2017-09-01 01:51] LABS: EOSINOPHIL (%) 0.4 % (0-5); EOSINOPHIL COUNT 0.1 K/uL (0-0.3); IMM.PLATELET FRACTION 6.3 (1-7); IMMATURE GRANULOCYTE (%) 0.4 % (0.0-0.7); IMMATURE GRANULOCYTE COUNT 0.1 K/uL; INSTRUMENT ABS NEUTROPHIL CT 10.2 K/uL; LYMPHOCYTE COUNT 1.9 K/uL (1.0-2.8); MEAN PLAT.VOLUME 12.1 uM^3 (9.5-12.4); MONOCYTE (%) 9.1 % (3-12); MONOCYTE COUNT 1.2 K/uL (0-0.8); NEUTROPHIL (%) 76.1 % (45-76); NEUTROPHIL COUNT 10.2 K/uL (1.8-6.4); PLAT.SUFFICIENCY VERY DECREASED; PLATELET COUNT 38 K/uL (156-360)
[2017-09-01 02:07] LABS: GAMMA-GT 281 IU/L (4-73)
[2017-09-01 02:11] VITALS: BP 139/79
[2017-09-01 02:29] VITALS: BP 149/85
[2017-09-01 03:18] VITALS: BP 130/75
[2017-09-01 03:59] VITALS: BP 141/84
[2017-09-01 04:26] VITALS: BP 125/72
[2017-09-01 04:58] VITALS: BP 134/79
[2017-09-01 06:44] LABS: TROP-I INTERPRETATION NEGATIVE; TROPONIN-I < 0.01 ng/mL (0.0-0.30)
[2017-09-01 06:45] LABS: INTER. NORMALIZED RATIO 0.9; PROTHROMBIN TIME 10.4 SEC (10.2-12.9)
[2017-09-01 06:48] LABS: PTT 27.8 SEC (25-37)
[2017-09-01 06:51] LABS: EOSINOPHIL (%) 0.6 % (0-5); EOSINOPHIL COUNT 0.1 K/uL (0-0.3); HEMATOCRIT 23.1 % (36.0-46.0); IMM.PLATELET FRACTION 7.6 (1-7); IMMATURE GRANULOCYTE (%) 0.4 % (0.0-0.7); IMMATURE GRANULOCYTE COUNT 0.1 K/uL; INSTRUMENT ABS NEUTROPHIL CT 9.3 K/uL; LYMPHOCYTE COUNT 1.7 K/uL (1.0-2.8); MCH 30.6 PG (29.0-34.0); MCHC 32.9 G/DL (30.0-36.0); MCV 93.1 FL (83-99); MONOCYTE (%) 11.2 % (3-12); MONOCYTE COUNT 1.4 K/uL (0-0.8); NEUTROPHIL (%) 74.4 % (45-76); NEUTROPHIL COUNT 9.3 K/uL (1.8-6.4); PLATELET COUNT 37 K/uL (156-360); RBC DIS.WIDTH-CV 16.6 % (11.8-14.6); RBC DIS.WIDTH-SD 55.6 % (39-53); RED BLOOD COUNT 2.48 M/uL (3.80-5.20); WHITE BLOOD COUNT 12.5 K/uL (4.1-10.2)
[2017-09-01 07:10] LABS: PLAT.SUFFICIENCY DECREASED
[2017-09-01 08:28] LABS: ALKALINE PHOSPHATASE 95 IU/L (3-129); ANION GAP 7 MEQ/L (2-14); CHLORIDE 128 MEQ/L (99-109); DIRECT BILIRUBIN 0.4 mg/dL (0.0-0.3); GAMMA-GT 287 IU/L (4-73); GFR ESTIMATE (CALCULATED) > 59 mL/min/; GLUCOSE 119 mg/dL (70-99); POTASSIUM 3.6 MEQ/L (3.7-5.4); SAMPLE HEMOLYSIS CHECK 0; SAMPLE ICTERIC CHECK 0; SAMPLE LIPEMIA CHECK 0; SODIUM 151 MEQ/L (136-147); UREA NITROGEN (BUN) 22 mg/dL (9-23)
[2017-09-01 08:29] LABS: TOTAL BILIRUBIN 0.9 MG/DL (0.0-1.0)
[2017-09-01 11:55] LABS: EOSINOPHIL (%) 0.5 % (0-5); EOSINOPHIL COUNT 0.1 K/uL (0-0.3); IMMATURE GRANULOCYTE (%) 0.4 % (0.0-0.7); IMMATURE GRANULOCYTE COUNT 0.1 K/uL; LYMPHOCYTE COUNT 1.6 K/uL (1.0-2.8); MCHC 32.7 G/DL (30.0-36.0); MCV 94.8 FL (83-99); MONOCYTE (%) 12.8 % (3-12); MONOCYTE COUNT 1.4 K/uL (0-0.8); NEUTROPHIL (%) 72.2 % (45-76); RBC DIS.WIDTH-CV 16.6 % (11.8-14.6); RBC DIS.WIDTH-SD 57.2 % (39-53); RED BLOOD COUNT 2.32 M/uL (3.80-5.20); WHITE BLOOD COUNT 11.1 K/uL (4.1-10.2)
[2017-09-01 12:17] LABS: INTER. NORMALIZED RATIO 0.9; PROTHROMBIN TIME 10.3 SEC (10.2-12.9); TROP-I INTERPRETATION NEGATIVE; TROPONIN-I < 0.01 ng/mL (0.0-0.30)
[2017-09-01 12:20] LABS: PTT 26.3 SEC (25-37)
[2017-09-01 12:44] LABS: ALKALINE PHOSPHATASE 96 IU/L (3-129); ANION GAP 4 MEQ/L (2-14); CHLORIDE 126 MEQ/L (99-109); DIRECT BILIRUBIN 0.1 mg/dL (0.0-0.3); GFR ESTIMATE (CALCULATED) > 59 mL/min/; GLUCOSE 124 mg/dL (70-99); POTASSIUM 3.8 MEQ/L (3.7-5.4); SAMPLE HEMOLYSIS CHECK 1; SAMPLE ICTERIC CHECK 0; SAMPLE LIPEMIA CHECK 0; SODIUM 149 MEQ/L (136-147); TOTAL BILIRUBIN 0.8 MG/DL (0.0-1.0); UREA NITROGEN (BUN) 21 mg/dL (9-23)
[2017-09-01 13:06] LABS: MEAN PLAT.VOLUME 11.7 uM^3 (9.5-12.4); PLATELET COUNT 40 K/uL (156-360)
[2017-09-01 14:47] LABS: GAMMA-GT 238 IU/L (4-73)
[2017-09-01 23:47] LABS: Heparin Induced Plt Ab Negative (Negative)
[2017-09-02 10:11] LABS: UFH SRA Result Negative (Negative)
== END 2017-09-01 20:00 | DRG 917 ==
LOC: EME → EDBD 23:09 → EME 23:09 → 4WEST 08-28 01:33 → ENRESERV 08-28 01:33 → EDOF 08-28 01:33 → 4WEST 08-28 01:33 → ENRESERV 08-28 01:37 → 4WEST 08-28 02:01 → CANRESERV 09-01 → ENRESERV 09-01 → 4WEST 09-01 15:19 → ENRESERV 09-01 15:20 → 4WEST 09-01 20:00
PROVIDERS: Emergency Medicine; Internal Medicine Critical Care Medicine; Obstetrics & Gynecology; Specialist
PROC: 5A1955Z Respiratory Ventilation, Greater than 96 Consecutive Hours (ICD-10-PCS; principal; 2017-08-27)
PROC: B544ZZA Ultrasonography of Left Jugular Veins, Guidance (ICD-10-PCS; 2017-08-27)
PROC: 02HV33Z Insertion of Infusion Device into Superior Vena Cava, Percutaneous Approach (ICD-10-PCS; 2017-08-27)
PROC: 5A12012 Performance of Cardiac Output, Single, Manual (ICD-10-PCS; 2017-08-27)
PROC: 03HY32Z Insertion of Monitoring Device into Upper Artery, Percutaneous Approach (ICD-10-PCS; 2017-08-28)
PROC: 30233N1 Transfusion of Nonautologous Red Blood Cells into Peripheral Vein, Percutaneous Approach (ICD-10-PCS; 2017-09-01)
DX: T40.1X1A Poisoning by heroin, accidental (unintentional), initial encounter (principal); F10.229 Alcohol dependence with intoxication, unspecified; I46.9 Cardiac arrest, cause unspecified; E87.0 Hyperosmolality and hypernatremia; E87.6 Hypokalemia; N17.9 Acute kidney failure, unspecified; Z51.5 Encounter for palliative care; Z66 Do not resuscitate; J96.00 Acute respiratory failure, unspecified whether with hypoxia or hypercapnia; N39.0 Urinary tract infection, site not specified; B96.20 Unspecified Escherichia coli [E. coli] as the cause of diseases classified elsewhere; E87.2 Acidosis; E83.51 Hypocalcemia; E87.5 Hyperkalemia; R00.0 Tachycardia, unspecified; G93.1 Anoxic brain damage, not elsewhere classified; I10 Essential (primary) hypertension; F11.10 Opioid abuse, uncomplicated; F32.9 Major depressive disorder, single episode, unspecified; Z23 Encounter for immunization
CPT/HCPCS: 36600; 70450; 71010; 71275; 74177; 76705; 80047; 80048; 80048 91; 80053; 80076; 81003; 82248; 82330; 82570; 82803; 82948; 82977; 83605; 83690; 83735; 84100; 84300; 84484; 84702; 84999; 85025; 85025 91; 85027; 85610; 85730; 86022 90; 86850; 86900; 86901; 86920; 87040; 87070; 87077; 87086; 87106; 87186; 87205; 87641; 90686; 93005; 94002; 94003; 95819; 99281; 99285; C1751; C1874; C9113; G0480; J0171; J0696; J1644; J2060; J2270; J2310; J3010; J3411; J3475; J3480; J7030; J7050; J7070; J7120; P9016; S0028